=== PATIENT | male | born 1990 | race African-American/Black ===

== ENCOUNTER 2016-09-30 17:50 | Emergency (ER) | payer OTHER ==
[~2016-09-30] VITALS: Ht 190.5 cm; Wt 89.6 kg
[2016-09-30] MEDS ORDERED: IBUPROFEN 600 MG TABLET. PO ONE (18:30)
[2016-09-30 18:40] VITALS: BP 143/82
[2016-09-30] MEDS ORDERED: IBUP600T16 PO (18:48)
[2016-09-30] MEDS ORDERED: HYDR-2678 PO (18:48)
--- NOTE | 2016-09-30 18:48 | PHYS DOC ---
Past History Past Medical History: Other Past Surgical History: Other Alcohol Use: None Drug Use: Marijuana Social History Narrative: none since going to jail Adult General Chief Complaint Chief Complaint: ELBOW PROBLEM [facility] HPI Patient is a 26-year-old gentleman who presents here today secondary to pain to his left elbow. Patient reports while he was playing basketball he fell down on outstretched arm and is having pain to his left elbow ever since. Patient reports that swelling to that area as well. Patient denies any numbness or paresthesias distally. Patient is neurovascularly intact distally. Patient has no other pain in his shoulders. Wrist. Hand. Patient's physical exam is significant for tenderness to palpation to the elbow. Patient has full range of motion however it is slightly diminished secondary to pain however he is able to have full range of motion of the elbow. Patient has no other tenderness to palpation to his wrist or shoulder. Patient has no tenderness to palpation to his humerus. Patient has no warmth. Patient is neurovascularly intact. Patient's x-ray of his left elbow reveals a minimally displaced radial head fracture. No joint effusion is appreciated on the x-ray. Assessment and plan to 26-year-old gentleman who presents here today secondary to injury to his left elbow while playing graftable. Patient does have a radial head fracture was identified by Dr. Masterson on the x-ray. Patient was placed in a posterior long-arm splint and sling. Patient will be [facility] back to the prison facility with instructions to follow-up with an orthopedic surgeon within the week for reevaluation and assessment for possible procedural/cast placement. Patient was instructed that he needs to keep the splint on until he is evaluated by the orthopedic surgeon. Patient was discharged home with ibuprofen. Review of Systems Review of Systems Constitutional: Denies fever or chills [] Eyes: Denies change in visual acuity, redness, or eye pain [] HENT: Denies nasal congestion or sore throat [] Respiratory: Denies cough or shortness of breath [] Cardiovascular: No additional information not addressed in HPI [] GI: Denies abdominal pain, nausea, vomiting, bloody stools or diarrhea [] : Denies dysuria or hematuria [] Musculoskeletal: Denies back pain pain to his left elbow. Integument: Denies rash or skin lesions [] Neurologic: Denies headache, focal weakness or sensory changes [] Endocrine: Denies polyuria or polydipsia [] Current Medications Current Medications Current Medications Medications (Trade) Dose Ordered Sig/Megan Start Time Stop Time Status Last Admin Dose Admin Ibuprofen (Motrin) 600 mg 1X ONCE 09/30/16 18:30 09/30/16 18:31 DC Allergies Allergies Allergies Coded Allergies Type Severity Reaction Last Updated Verified No Known Drug Allergies 09/30/16 No Physical Exam Physical Exam Constitutional: Well developed, well nourished, no acute distress, non-toxic appearance. [] HENT: Normocephalic, atraumatic, bilateral external ears normal, oropharynx moist, no oral exudates, nose normal. [] Eyes: PERRLA, EOMI, conjunctiva normal, no discharge. [] Neck: Normal range of motion, no tenderness, supple, no stridor. [] Cardiovascular:Heart rate regular rhythm, no murmur [] Lungs & Thorax: Bilateral breath sounds clear to auscultation [] Abdomen: Bowel sounds normal, soft, no tenderness, no masses, no pulsatile masses. [] Skin: Warm, dry, no erythema, no rash. [] Back: No tenderness, no CVA tenderness. [] Extremities: See above. Neurologic: Alert and oriented X 3, normal motor function, normal sensory function, no focal deficits noted. [] Psychologic: Affect normal, judgement normal, mood normal. [] Current Patient Data Vital Signs Vital Signs Date Time Temp Pulse Resp B/P (MAP) Pulse Ox O2 Delivery O2 Flow Rate FiO2 09/30/16 17:55 98.1 59 16 99 Room Air EKG EKG [] Radiology/Procedures Radiology/Procedures [] Course & Med Decision Making Course & Med Decision Making Pertinent Labs and Imaging studies reviewed. (See chart for details) [] Dragon Disclaimer Dragon Disclaimer This chart was dictated in whole or in part using Voice Recognition software in a busy, high-work load, and often noisy Emergency Department environment. It may contain unintended and wholly unrecognized errors or omissions. Departure Departure: Impression: Primary Impression: Fractured elbow Additional Impression: Radial head fracture Disposition: 01 HOME, SELF-CARE Condition: IMPROVED Referrals: PCP,NO (PCP) Patient Instructions: Arm Sling Use-Brief, Cast or Splint Care, Elbow Fracture , Radial Head with Rehab-SportsMed, Elbow Fracture, Simple Additional Instructions: Please follow up with the clinic at your prison facility. They will need to arrange follow up for you with an orthopedic surgeon to further evaluate and treat your elbow fracture. This should be done within the week. Scripts Hydrocodone/Acetaminophen (Lortab 5-325 mg Tablet) 1 Each Tablet 1 TAB PO PRN Q6HRS Y for PAIN, #12 TAB 0 Refills Prov: ERICA EM MD 09/30/16 Ibuprofen (IBUPROFEN) 600 Mg Tablet 600 MG PO QID Y for PAIN, #20 Prov: ERICA EM MD 09/30/16 Problem Qualifiers Primary Impression: Fractured elbow Encounter type: initial encounter Fracture type: closed Laterality: left Qualified Codes: S42.402A - Unspecified fracture of lower end of left humerus, initial encounter for closed fracture ERICA EM MD September 30, 2016 18:48
--- NOTE | 2016-10-01 09:32 | RAD ---
Examination: 3 views of the left elbow History: History of left elbow injury Comparison: None available Findings: The alignment of the gallbladder grossly appears unremarkable There is elevation of the anterior fat pad and prominence of the posterior fat pad likely joint effusion. Joint effusion suggests possible nondisplaced fracture of the radius head. Impression: Elbow joint effusion identified. Possible nondisplaced fracture of the radius head. Follow-up radiograph in 5-7 days can be considered.
== END 2016-09-30 19:03 | disposition home or self-care (01) ==
LOC: EEVIPCON 17:50 → ER 17:50
DX: S52.122A Displaced fracture of head of left radius, initial encounter for closed fracture (principal); F12.10 Cannabis abuse, uncomplicated; W19.XXXA Unspecified fall, initial encounter; Y93.67 Activity, basketball; Y99.8 Other external cause status; Y92.89 Other specified places as the place of occurrence of the external cause
CPT/HCPCS: 29105; 73080; 99284-25